=== PATIENT | male | born 1970 | race Caucasian/White ===

== ENCOUNTER → 2017-02-13 | Outpatient (CLI) | payer MEDICARE | LOC: EMI 01-10 16:45 | DX: M54.12 Radiculopathy, cervical region (principal); M50.30 Other cervical disc degeneration, unspecified cervical region; M99.71 Connective tissue and disc stenosis of intervertebral foramina of cervical region | CPT/HCPCS: 72141 ==

== ENCOUNTER 2021-12-22 09:31 | Emergency (ER) | payer BC ==
[2021-12-22] MEDS ORDERED: CYCLOBENZAPRINE10 MG PO (12:23)
[2021-12-22] MEDS ORDERED: MEDROL DOSEPAK 24 MG PO (12:23)
== END 2021-12-22 13:07 | disposition home or self-care (01) ==
LOC: ER1 09:31
DX: M54.31 Sciatica, right side (principal); E11.9 Type 2 diabetes mellitus without complications; I10 Essential (primary) hypertension; Z90.49 Acquired absence of other specified parts of digestive tract
CPT/HCPCS: 72131; 96372; 99283; J1100; J1885